=== PATIENT | female | born 1940 | race Caucasian/White ===

== ENCOUNTER 2023-09-05 15:47 | Emergency (ER) | payer MEDICARE, BC ==
[~2023-09-05] VITALS: Ht 165.1 cm; Wt 65.0 kg
[2023-09-05] MEDS: HYDROcodone/acetaminophen 5mg/325mg tablet PO ONE (17:18)
[2023-09-05] MEDS: ondansetron/PF 4mg/2ml inj IV ONE (18:08)
[2023-09-05 18:09] LABS: BILIRUBIN,URINE NEGATIVE (Neg); CLARITY,URINE CLEAR (Clear); GLUCOSE, URINE NEGATIVE (Neg); KETONES,URINE NEGATIVE (Neg); LEUKOCYTE ESTERASE ,URINE SMALL (Neg); NITRITES, URINE POSITIVE (Neg); OCCULT BLOOD,URINE MODERATE (Neg); PROTEIN,URINE 30 mg/dl (Neg); UROBILINOGEN,URINE 0.2 E.U/dL (0.2-1.0)
[2023-09-05 18:17] LABS: COLOR,URINE DARK YELLOW (Yellow); UA COLLECTION TYPE NON-SPECIFIED
[2023-09-05 18:18] LABS: BACTERIA,URINE 4+ /HPF (Neg); RBC,URINE 20-50 /HPF (0-2); WBC,URINE TNTC /HPF (0-4)
[2023-09-05 18:19] LABS: MUCUS STRANDS FEW /LPF (Neg); RENAL CELLS, URINE FEW /HPF; SQUAMOUS EPITHELIAL CELL,UR FEW /LPF (FEW); WBC CLUMPS,URINE MODERATE /HPF (NEGATIVE)
[2023-09-05] MEDS ORDERED: SULF1TAB45 PO (18:55)
[2023-09-05] MEDS: sulfamethoxazole/trimethoprim DS (800/160mg) tablet PO ONE (19:00)
[2023-09-05 20:33] VITALS: BP 112/62; PULSE 88; RESP 18; TEMP 98.3; O2SAT 98
[2023-09-07] MEDS ORDERED: APIX5TAB3 PO (16:43)
== END 2023-09-05 20:35 | disposition home or self-care (01) ==
LOC: ER 15:47
DX: S09.90XA Unspecified injury of head, initial encounter (principal); M25.551 Pain in right hip; N39.0 Urinary tract infection, site not specified; E78.00 Pure hypercholesterolemia, unspecified; I10 Essential (primary) hypertension; Z86.711 Personal history of pulmonary embolism; Z60.2 Problems related to living alone; W18.30XA Fall on same level, unspecified, initial encounter; Y93.89 Activity, other specified; Y92.002 Bathroom of unspecified non-institutional (private) residence as the place of occurrence of the external cause; Y99.8 Other external cause status
CPT/HCPCS: 70450; 72125; 72170; 81001; 87077; 87088; 87186; 96374; 99285; J2405

== ENCOUNTER 2023-10-04 08:01 | Emergency (ER) | payer MEDICARE, BC ==
[~2023-10-04] VITALS: Ht 166.4 cm; Wt 63.2 kg
[~2023-10-04 08:01] MED LIST: APIX5TAB3 PO; SULF1TAB45 PO
[2023-10-04 08:07] VITALS: TEMP 98.5
[2023-10-04 08:48] LABS: BASOPHILS # (AUTO) 0.1 X10'3 (0-0.2); BASOPHILS % (AUTO) 1.3 % (0-1); EOSINOPHILS # (AUTO) 0.6 X10'3 (0-0.9); EOSINOPHILS % (AUTO) 9.9 % (0-6); HEMATOCRIT 36.2 % (35.0-45.0); HEMOGLOBIN 11.8 g/dl (12.0-16.0); LYMPHOCYTES # (AUTO) 1.9 X10'3 (1.1-4.8); LYMPHOCYTES % (AUTO) 30.8 % (21-51); MEAN CORPUSCULAR HEMOGLOBIN 29.2 PG (27.0-31.0); MEAN CORPUSCULAR HGB CONC 32.7 g/dL (33.0-36.5); MEAN CORPUSCULAR VOLUME 89.5 FL (78-98); MEAN PLATELET VOLUME 8.7 FL (7.4-10.4); MONOCYTES # (AUTO) 0.4 X10'3 (0-0.9); NEUTROPHILS # (AUTO) 3.2 X10'3 (1.8-7.7); PLATELET COUNT 271 X10'3 (140-440); RED BLOOD COUNT 4.05 X10'6 (4.20-5.60); RED CELL DISTRIBUTION WIDTH 14.9 % (11.5-14.5); WHITE BLOOD COUNT 6.1 X10'3 (4.5-11.0)
[2023-10-04 09:07] LABS: ALBUMIN 3.2 G/DL (3.4-5.0); ANION GAP 9 (8-16); BLOOD UREA NITROGEN 15 MG/DL (7-18); BUN/CREATININE RATIO 15.2 (10.0-20.0); CALCIUM 9.3 MG/DL (8.5-10.1); CHLORIDE 103 MMOL/L (99-107); CREATININE 0.99 MG/DL (0.40-0.90); GLUCOSE 111 MG/DL (70-104); MAGNESIUM 1.7 MG/DL (1.5-2.4); POTASSIUM 3.6 MMOL/L (3.5-5.1); SODIUM 137 MMOL/L (135-145); TOTAL CARBON DIOXIDE 25.1 MMOL/L (24-32); eCRCL 40 ML/MIN; eGFR 54 ML/MIN
[2023-10-04 09:08] LABS: C-REACTIVE PROTEIN < 0.05 MG/DL (0.0-0.5)
[2023-10-04] MEDS ORDERED: TRAM1TAB7 PO (11:12)
[2023-10-04 11:19] VITALS: BP 165/65; PULSE 92; RESP 19; O2SAT 96
[2023-10-04] MEDS: traMADol 50MG tablet PO ONE (11:24)
== END 2023-10-04 18:11 | disposition home or self-care (01) ==
LOC: ER 08:02
DX: M47.812 Spondylosis without myelopathy or radiculopathy, cervical region (principal); E78.00 Pure hypercholesterolemia, unspecified; I10 Essential (primary) hypertension; Z86.711 Personal history of pulmonary embolism; G89.29 Other chronic pain; M54.2 Cervicalgia; Z60.2 Problems related to living alone
CPT/HCPCS: 36415; 71045; 72040; 80048; 83735; 84484; 85025; 86140; 93005; 99285

== ENCOUNTER 2023-10-24 18:19 | Emergency (ER) | payer MEDICARE, BC ==
[~2023-10-24] VITALS: Ht 165.1 cm; Wt 63.5 kg
[~2023-10-24 18:19] MED LIST changes: -SULF1TAB45 PO
[2023-10-24 19:48] LABS: BASOPHILS # (AUTO) 0.2 X10'3 (0-0.2); BASOPHILS % (AUTO) 1.5 % (0-1); EOSINOPHILS # (AUTO) 0.5 X10'3 (0-0.9); EOSINOPHILS % (AUTO) 5.1 % (0-6); HEMATOCRIT 36.7 % (35.0-45.0); HEMOGLOBIN 12.2 g/dl (12.0-16.0); LYMPHOCYTES # (AUTO) 2.2 X10'3 (1.1-4.8); LYMPHOCYTES % (AUTO) 21.1 % (21-51); MEAN CORPUSCULAR HEMOGLOBIN 29.7 PG (27.0-31.0); MEAN CORPUSCULAR HGB CONC 33.4 g/dL (33.0-36.5); MEAN PLATELET VOLUME 7.8 FL (7.4-10.4); MONOCYTES # (AUTO) 0.6 X10'3 (0-0.9); MONOCYTES % (AUTO) 6.1 % (2-12); NEUTROPHILS # (AUTO) 6.8 X10'3 (1.8-7.7); NEUTROPHILS % (AUTO) 66.2 % (42-75); PLATELET COUNT 263 X10'3 (140-440); RED BLOOD COUNT 4.12 X10'6 (4.20-5.60); WHITE BLOOD COUNT 10.2 X10'3 (4.5-11.0)
[2023-10-24 19:50] LABS: BILIRUBIN,URINE NEGATIVE (Neg); CLARITY,URINE CLOUDY (Clear); COLOR,URINE YELLOW (Yellow); GLUCOSE, URINE NEGATIVE (Neg); KETONES,URINE NEGATIVE (Neg); LEUKOCYTE ESTERASE ,URINE LARGE (Neg); NITRITES, URINE NEGATIVE (Neg); OCCULT BLOOD,URINE SMALL (Neg); PROTEIN,URINE NEGATIVE (Neg); UROBILINOGEN,URINE 0.2 E.U/dL (0.2-1.0)
[2023-10-24 20:02] LABS: ALANINE AMINOTRANSFERASE 27 U/L (12-78); ALBUMIN 3.6 G/DL (3.4-5.0); ALBUMIN/GLOBULIN RATIO 0.9 (1.1-1.5); ALKALINE PHOSPHATASE 109 IU/L (46-116); ANION GAP 6 (8-16); ASPARTATE AMINO TRANSFERASE 30 U/L (10-37); BILIRUBIN,TOTAL 0.6 MG/DL (0.1-1.0); BLOOD UREA NITROGEN 15 MG/DL (7-18); BUN/CREATININE RATIO 11.7 (10.0-20.0); CALCIUM 9.2 MG/DL (8.5-10.1); CHLORIDE 93 MMOL/L (99-107); CREATININE 1.28 MG/DL (0.40-0.90); GLUCOSE 125 MG/DL (70-104); LIPASE 71 U/L (16-77); POTASSIUM 4.2 MMOL/L (3.5-5.1); SODIUM 128 MMOL/L (135-145); TOTAL CARBON DIOXIDE 28.9 MMOL/L (24-32); TOTAL PROTEIN 7.4 G/DL (6.4-8.2); eCRCL 30 ML/MIN; eGFR 40 ML/MIN
[2023-10-24 20:06] LABS: UA COLLECTION TYPE CLN CATCH MIDSTREAM
[2023-10-24 20:07] LABS: BACTERIA,URINE 2+ /HPF (Neg); MUCUS STRANDS FEW /LPF (Neg); SQUAMOUS EPITHELIAL CELL,UR MODERATE /LPF (FEW); WBC,URINE TNTC /HPF (0-4)
[2023-10-24 20:08] LABS: WBC CLUMPS,URINE MODERATE /HPF (NEGATIVE)
[2023-10-25] MEDS ORDERED: NITR100C6 PO (00:23)
[2023-10-25] MEDS: CefTRIAXone 1000mg IM Kit (w/lidocaine diluent) IM ONE (00:42)
[2023-10-25 00:47] VITALS: BP 136/90; PULSE 89; RESP 16; TEMP 98.5; O2SAT 98
== END 2023-10-25 00:50 | disposition home or self-care (01) ==
LOC: ER 18:20
DX: K59.00 Constipation, unspecified (principal); N39.0 Urinary tract infection, site not specified; I48.91 Unspecified atrial fibrillation; E78.00 Pure hypercholesterolemia, unspecified; I10 Essential (primary) hypertension; Z86.711 Personal history of pulmonary embolism; Z60.2 Problems related to living alone; Z98.890 Other specified postprocedural states; Z79.899 Other long term (current) drug therapy
CPT/HCPCS: 36415; 71250; 74176; 80053; 81001; 83690; 85025; 87077; 87088; 87186; 96372; 99285; J0696

== ENCOUNTER 2023-12-25 09:39 | Day surgery (SDC) | payer MEDICARE, BC ==
[~2023-12-25] VITALS: Ht 165.1 cm; Wt 63.6 kg
[~2023-12-25 09:39] MED LIST changes: +AMLO2.5T4 PO; -APIX5TAB3 PO; +PANT-47 PO
[2023-12-25 10:26] VITALS: BP 160/83; PULSE 88; RESP 18; TEMP 97.8
[2023-12-25] MEDS ORDERED: fentaNYL/PF 50MCG/1 ML 2ML syringe ONE (11:08)
[2023-12-25] MEDS ORDERED: midazolam 1 mg/ML 2ml injection ONE (11:08)
[2023-12-25] MEDS ORDERED: simethicone 40mg/0.6ml oral drops 30ml ONE (11:09)
[2023-12-25 11:27] VITALS: BP 101/40; PULSE 79; RESP 9; O2SAT 99
[2023-12-25 11:40] VITALS: BP 106/42; PULSE 71; RESP 10; O2SAT 92
[2023-12-25 11:50] VITALS: BP 123/59; PULSE 71; RESP 15; O2SAT 94
[2023-12-25 12:00] VITALS: BP 110/50; PULSE 75; RESP 14; O2SAT 95
== END 2023-12-25 12:07 | disposition home or self-care (01) ==
LOC: GI LAB 09:39
PROVIDERS: ATTEND Internal Medicine Gastroenterology
DX: D50.0 Iron deficiency anemia secondary to blood loss (chronic) (principal); K29.50 Unspecified chronic gastritis without bleeding; K31.89 Other diseases of stomach and duodenum; I10 Essential (primary) hypertension; K21.9 Gastro-esophageal reflux disease without esophagitis; Z86.711 Personal history of pulmonary embolism
CPT/HCPCS: 43239; A4620; J2250; J3010; J7030; Z7512

== ENCOUNTER 2023-12-27 18:01 | Emergency (ER) | payer MEDICARE, BC ==
[~2023-12-27] VITALS: Ht 165.1 cm; Wt 63.9 kg
[2023-12-27 18:27] LABS: BILIRUBIN,URINE NEGATIVE (Neg); CLARITY,URINE CLOUDY (Clear); COLOR,URINE YELLOW (Yellow); GLUCOSE, URINE NEGATIVE (Neg); KETONES,URINE TRACE mg/dl (Neg); LEUKOCYTE ESTERASE ,URINE MODERATE (Neg); NITRITES, URINE NEGATIVE (Neg); OCCULT BLOOD,URINE SMALL (Neg); PROTEIN,URINE TRACE mg/dl (Neg)
[2023-12-27 18:36] LABS: UA COLLECTION TYPE CLN CATCH MIDSTREAM
[2023-12-27 18:54] LABS: SQUAMOUS EPITHELIAL CELL,UR FEW /LPF (FEW)
[2023-12-27 18:55] LABS: RBC,URINE 0-2 /HPF (0-2); WBC,URINE TNTC /HPF (0-4)
[2023-12-27 18:56] LABS: BACTERIA,URINE FEW /HPF (Neg)
[2023-12-27] MEDS ORDERED: AMOX-117 PO (18:59)
[2023-12-27] MEDS ORDERED: LACT1CAP65 PO (18:59)
[2023-12-27] MEDS: amox tr/potassium clavulanate 875/125mg TAB PO ONE (19:03)
[2023-12-27 19:16] VITALS: BP 124/69; PULSE 94; RESP 14; TEMP 98.5; O2SAT 98
== END 2023-12-27 19:18 | disposition home or self-care (01) ==
LOC: ER 18:01
DX: N39.0 Urinary tract infection, site not specified (principal); I48.91 Unspecified atrial fibrillation; E78.00 Pure hypercholesterolemia, unspecified; I10 Essential (primary) hypertension; Z86.73 Personal history of transient ischemic attack (TIA), and cerebral infarction without residual deficits; Z60.2 Problems related to living alone; Z79.899 Other long term (current) drug therapy; Z79.2 Long term (current) use of antibiotics; Z98.890 Other specified postprocedural states
CPT/HCPCS: 81001; 87077; 87088; 87186; 99283

== ENCOUNTER 2024-02-15 19:27 | Inpatient (IN) | payer MEDICARE, BC ==
[~2024-02-15] VITALS: Ht 165.1 cm; Wt 62.0 kg
[~2024-02-15 19:27] MED LIST changes: +LACT1CAP65 PO
[2024-02-15] MEDS: HYDROmorphone 1 mg/ml syringe IV ONE (19:57)
[2024-02-15 20:02] LABS: BASOPHILS # (AUTO) 0.1 X10'3 (0-0.2); BASOPHILS % (AUTO) 0.9 % (0-1); EOSINOPHILS # (AUTO) 0.3 X10'3 (0-0.9); HEMATOCRIT 35.3 % (35.0-45.0); HEMOGLOBIN 11.5 g/dl (12.0-16.0); LYMPHOCYTES # (AUTO) 1.6 X10'3 (1.1-4.8); LYMPHOCYTES % (AUTO) 22.6 % (21-51); MEAN CORPUSCULAR HEMOGLOBIN 28.9 PG (27.0-31.0); MEAN CORPUSCULAR HGB CONC 32.5 g/dL (33.0-36.5); MEAN PLATELET VOLUME 8.9 FL (7.4-10.4); MONOCYTES # (AUTO) 0.5 X10'3 (0-0.9); MONOCYTES % (AUTO) 6.9 % (2-12); NEUTROPHILS # (AUTO) 4.5 X10'3 (1.8-7.7); NEUTROPHILS % (AUTO) 64.6 % (42-75); PLATELET COUNT 159 X10'3 (140-440); RED BLOOD COUNT 3.97 X10'6 (4.20-5.60); RED CELL DISTRIBUTION WIDTH 14.3 % (11.5-14.5)
[2024-02-15 20:07] LABS: ALANINE AMINOTRANSFERASE 23 U/L (12-78); ALBUMIN 3.3 G/DL (3.4-5.0); ALKALINE PHOSPHATASE 98 IU/L (46-116); ANION GAP 4 (8-16); ASPARTATE AMINO TRANSFERASE 24 U/L (10-37); BILIRUBIN,TOTAL 0.5 MG/DL (0.1-1.0); BLOOD UREA NITROGEN 23 MG/DL (7-18); BUN/CREATININE RATIO 15.8 (10.0-20.0); CALCIUM 8.3 MG/DL (8.5-10.1); CHLORIDE 105 MMOL/L (99-107); CREATININE 1.46 MG/DL (0.40-0.90); GLUCOSE 112 MG/DL (70-104); POTASSIUM 3.8 MMOL/L (3.5-5.1); PRO BRAIN NATRIURETIC PEPTIDE 359 PG/ML (0-450); SODIUM 138 MMOL/L (135-145); TOTAL CARBON DIOXIDE 28.6 MMOL/L (24-32); TOTAL PROTEIN 6.5 G/DL (6.4-8.2); eCRCL 26 ML/MIN; eGFR 34 ML/MIN
[2024-02-15] MEDS ORDERED: PANT40TA54 PO (20:41)
[2024-02-15] MEDS ORDERED: MELA1TAB28 PO (20:41)
[2024-02-15] MEDS ORDERED: AMIT75TA7 PO (20:41)
[2024-02-15] MEDS ORDERED: magnesium hydroxide 30ml (MOM) UD suspension PO PRN (23:05)
[2024-02-15] MEDS ORDERED: HYDROmorphone inj. 0.5 MG/0.5 ML DISP.SYRIN IV PRN (23:05)
[2024-02-15] MEDS ORDERED: magnesium sulf-water 2g/50mL 50 ML IV PRN (23:05)
[2024-02-15] MEDS ORDERED: potassium Cl 40MEQ/1/2NS 520ml 520 ML IV PRN (23:05)
[2024-02-15] MEDS ORDERED: mag hydrox/Alum hydrox/simeth 30ml oral suspension PO PRN (23:05)
[2024-02-15] MEDS ORDERED: magnesium sulf-water 4G/100mL 100 ML IV PRN (23:05)
[2024-02-15] MEDS ORDERED: potassium Cl 20 mEq SR tablet PO PRN ×2 (23:05)
[2024-02-15] MEDS ORDERED: acetaminophen 325mg tablet PO PRN (23:05)
[2024-02-15] MEDS ORDERED: morphine 2 MG/ML inj. syringe IV PRN (23:05)
[2024-02-15] MEDS ORDERED: magnesium Cl slow-release 64mg tablet PO PRN (23:05)
[2024-02-15 23:37] LABS: HEMOGLOBIN A1C 5.9 % (4.5-6.2)
[2024-02-16] MEDS: HYDROmorphone/PF 0.2 MG/ML SYRINGE IV PRN (00:03)
[2024-02-16] MEDS: normal saline 1000ml 1,000 ML IV SCH (00:26)
[2024-02-16 00:35] LABS: FERRITIN 212 NG/ML (8-252)
[2024-02-16] MEDS: HYDROmorphone/PF 0.2 MG/ML SYRINGE IV ONE (00:44)
[2024-02-16 00:45] LABS: % IRON SATURATION 14 % (11-46); IRON 40 UG/DL (49-151); TOTAL IRON BINDING CAPACITY 280 UG/DL (259-388)
[2024-02-16] MEDS: LIDOcaine 5% patch TP SCH (02:15)
[2024-02-16] MEDS: enoxaparin 40mg/0.4ml syringe SUBCUT ONE (02:39)
[2024-02-16] MEDS: ondansetron/PF 4mg/2ml inj IV PRN (02:52)
[2024-02-16] MEDS: morphine 2 MG/ML inj. syringe IV PRN (02:53)
[2024-02-16 02:59] LABS: BASOPHILS % (AUTO) 0.3 % (0-1); EOSINOPHILS # (AUTO) 0.2 X10'3 (0-0.9); EOSINOPHILS % (AUTO) 1.5 % (0-6); HEMATOCRIT 36.4 % (35.0-45.0); HEMOGLOBIN 11.8 g/dl (12.0-16.0); LYMPHOCYTES # (AUTO) 1.3 X10'3 (1.1-4.8); LYMPHOCYTES % (AUTO) 12.4 % (21-51); MEAN CORPUSCULAR HEMOGLOBIN 29.1 PG (27.0-31.0); MEAN CORPUSCULAR HGB CONC 32.4 g/dL (33.0-36.5); MEAN CORPUSCULAR VOLUME 89.7 FL (78-98); MEAN PLATELET VOLUME 8.8 FL (7.4-10.4); MONOCYTES # (AUTO) 0.6 X10'3 (0-0.9); NEUTROPHILS # (AUTO) 8.5 X10'3 (1.8-7.7); NEUTROPHILS % (AUTO) 79.8 % (42-75); PLATELET COUNT 157 X10'3 (140-440); RED BLOOD COUNT 4.06 X10'6 (4.20-5.60); RED CELL DISTRIBUTION WIDTH 14.4 % (11.5-14.5); WHITE BLOOD COUNT 10.6 X10'3 (4.5-11.0)
[2024-02-16 03:11] LABS: ALANINE AMINOTRANSFERASE 32 U/L (12-78); ALBUMIN 3.3 G/DL (3.4-5.0); ALKALINE PHOSPHATASE 104 IU/L (46-116); ANION GAP 5 (8-16); ASPARTATE AMINO TRANSFERASE 26 U/L (10-37); BILIRUBIN,TOTAL 0.9 MG/DL (0.1-1.0); BLOOD UREA NITROGEN 19 MG/DL (7-18); BUN/CREATININE RATIO 15.8 (10.0-20.0); CALCIUM 8.5 MG/DL (8.5-10.1); CHLORIDE 106 MMOL/L (99-107); GLUCOSE 115 MG/DL (70-104); MAGNESIUM 1.7 MG/DL (1.5-2.4); POTASSIUM 3.6 MMOL/L (3.5-5.1); SODIUM 140 MMOL/L (135-145); TOTAL CARBON DIOXIDE 28.8 MMOL/L (24-32); TOTAL PROTEIN 6.6 G/DL (6.4-8.2); eCRCL 32 ML/MIN; eGFR 43 ML/MIN
[2024-02-16 03:30] LABS: BILIRUBIN,URINE NEGATIVE (Neg); CLARITY,URINE CLEAR (Clear); COLOR,URINE YELLOW (Yellow); GLUCOSE, URINE NEGATIVE (Neg); KETONES,URINE NEGATIVE (Neg); LEUKOCYTE ESTERASE ,URINE NEGATIVE (Neg); NITRITES, URINE NEGATIVE (Neg); OCCULT BLOOD,URINE NEGATIVE (Neg); PROTEIN,URINE NEGATIVE (Neg); UROBILINOGEN,URINE 0.2 E.U/dL (0.2-1.0)
[2024-02-16 03:35] LABS: UA COLLECTION TYPE CLN CATCH MIDSTREAM
[2024-02-16] MEDS: K and/or MAG REPLACEMENT MC SCH (06:47)
[2024-02-16] MEDS: docusate sod 100mg capsule PO SCH (06:48)
[2024-02-16 08:00] VITALS: RESP 20; O2SAT 94
[2024-02-16] MEDS: lactose-reduced food (Ensure Enlive) - 237ml bottle PO SCH (08:00)
[2024-02-16] MEDS ORDERED: pantoprazole 40mg Tablet.DR PO SCH (08:00)
[2024-02-16 08:57] VITALS: BP 160/70; PULSE 98; RESP 16; TEMP 98; O2SAT 99
[2024-02-16] MEDS: gabapentin 100mg capsule PO SCH (09:11)
[2024-02-16] MEDS: pantoprazole 40mg Tablet.DR PO SCH (09:11)
[2024-02-16] MEDS: amLODIPine 2.5mg tablet PO SCH (09:12)
[2024-02-16 10:00] VITALS: BP 125/66; PULSE 90; RESP 20; TEMP 98; O2SAT 94
[2024-02-16] MEDS: HYDROcodone/acetaminophen 10/325mg tab PO PRN (13:56)
[2024-02-16 18:00] VITALS: BP 151/82; PULSE 90; RESP 20; TEMP 97.8; O2SAT 97
[2024-02-16] MEDS: amitriptyline 25mg tablet PO SCH (20:38)
[2024-02-16] MEDS: pyridoxine 50mg tablet PO SCH (20:38)
[2024-02-16 20:40] VITALS: RESP 20
[2024-02-16] MEDS: Melatonin 3mg tablet PO SCH (21:47)
[2024-02-16 22:00] VITALS: BP 157/69; PULSE 93; RESP 16; TEMP 99.7; O2SAT 94
[2024-02-17 06:00] VITALS: BP 134/60; PULSE 94; RESP 14; TEMP 98.8; O2SAT 92
[2024-02-17 06:04] LABS: BASOPHILS % (AUTO) 0.5 % (0-1); EOSINOPHILS # (AUTO) 0.5 X10'3 (0-0.9); EOSINOPHILS % (AUTO) 7.1 % (0-6); HEMOGLOBIN 10.5 g/dl (12.0-16.0); LYMPHOCYTES # (AUTO) 1.2 X10'3 (1.1-4.8); LYMPHOCYTES % (AUTO) 17.8 % (21-51); MEAN CORPUSCULAR HEMOGLOBIN 29.4 PG (27.0-31.0); MEAN CORPUSCULAR HGB CONC 32.7 g/dL (33.0-36.5); MEAN CORPUSCULAR VOLUME 89.9 FL (78-98); MONOCYTES # (AUTO) 0.4 X10'3 (0-0.9); MONOCYTES % (AUTO) 6.1 % (2-12); NEUTROPHILS # (AUTO) 4.8 X10'3 (1.8-7.7); NEUTROPHILS % (AUTO) 68.5 % (42-75); PLATELET COUNT 126 X10'3 (140-440); RED BLOOD COUNT 3.56 X10'6 (4.20-5.60); RED CELL DISTRIBUTION WIDTH 14.1 % (11.5-14.5)
[2024-02-17 06:10] LABS: INR 1.1 INR; PROTHROMBIN TIME 11.3 SECONDS (9.0-12.0)
[2024-02-17 06:24] LABS: ALANINE AMINOTRANSFERASE 26 U/L (12-78); ALBUMIN 2.6 G/DL (3.4-5.0); ALBUMIN/GLOBULIN RATIO 0.8 (1.1-1.5); ALKALINE PHOSPHATASE 89 IU/L (46-116); ANION GAP 4 (8-16); ASPARTATE AMINO TRANSFERASE 23 U/L (10-37); BILIRUBIN,TOTAL 1.1 MG/DL (0.1-1.0); BLOOD UREA NITROGEN 14 MG/DL (7-18); BUN/CREATININE RATIO 12.6 (10.0-20.0); CALCIUM 8.1 MG/DL (8.5-10.1); CHLORIDE 106 MMOL/L (99-107); CREATININE 1.11 MG/DL (0.40-0.90); GLUCOSE 123 MG/DL (70-104); MAGNESIUM 1.7 MG/DL (1.5-2.4); POTASSIUM 3.8 MMOL/L (3.5-5.1); SODIUM 138 MMOL/L (135-145); TOTAL CARBON DIOXIDE 27.9 MMOL/L (24-32); TOTAL PROTEIN 5.7 G/DL (6.4-8.2); eCRCL 35 ML/MIN; eGFR 47 ML/MIN
[2024-02-17 09:42] VITALS: RESP 16; O2SAT 89
[2024-02-17 10:00] VITALS: BP 145/61; PULSE 96; RESP 16; TEMP 97.5; O2SAT 97
[2024-02-17] MEDS ORDERED: HYDROcodone/acetaminophen 5mg/325mg tablet PO PRN (16:25)
[2024-02-17] MEDS ORDERED: HYDROcodone/acetaminophen 10/325mg tab PO PRN (16:25)
[2024-02-17 18:00] VITALS: BP 160/60; PULSE 75; RESP 17; TEMP 99.1; O2SAT 96
[2024-02-17 20:20] VITALS: RESP 16
[2024-02-17] MEDS: heparin, porcine 5000 units/ml vial SQ SCH (21:35)
[2024-02-17 22:00] VITALS: BP 154/69; PULSE 84; RESP 16; TEMP 98.9; O2SAT 99
[2024-02-18] VITALS (7 sets, daily range): BP systolic 111–147; BP diastolic 59–72; PULSE 81–90; RESP 16–17; TEMP 97.2–98.1; O2SAT 90–97
[2024-02-18 06:20] LABS: ALANINE AMINOTRANSFERASE 26 U/L (12-78); ALBUMIN 2.5 G/DL (3.4-5.0); ALBUMIN/GLOBULIN RATIO 0.8 (1.1-1.5); ALKALINE PHOSPHATASE 93 IU/L (46-116); ANION GAP 5 (8-16); ASPARTATE AMINO TRANSFERASE 26 U/L (10-37); BILIRUBIN,TOTAL 1.2 MG/DL (0.1-1.0); BLOOD UREA NITROGEN 11 MG/DL (7-18); BUN/CREATININE RATIO 13.1 (10.0-20.0); CALCIUM 8.2 MG/DL (8.5-10.1); CHLORIDE 105 MMOL/L (99-107); CREATININE 0.84 MG/DL (0.40-0.90); GLUCOSE 108 MG/DL (70-104); MAGNESIUM 1.7 MG/DL (1.5-2.4); POTASSIUM 3.9 MMOL/L (3.5-5.1); SODIUM 137 MMOL/L (135-145); TOTAL CARBON DIOXIDE 27.4 MMOL/L (24-32); TOTAL PROTEIN 5.6 G/DL (6.4-8.2); eCRCL 46 ML/MIN; eGFR 65 ML/MIN
[2024-02-18 06:22] LABS: BASOPHILS # (AUTO) 0.1 X10'3 (0-0.2); BASOPHILS % (AUTO) 0.8 % (0-1); EOSINOPHILS # (AUTO) 0.5 X10'3 (0-0.9); EOSINOPHILS % (AUTO) 7.3 % (0-6); HEMATOCRIT 30.7 % (35.0-45.0); HEMOGLOBIN 10.1 g/dl (12.0-16.0); LYMPHOCYTES # (AUTO) 1.3 X10'3 (1.1-4.8); LYMPHOCYTES % (AUTO) 18.5 % (21-51); MEAN CORPUSCULAR HEMOGLOBIN 29.3 PG (27.0-31.0); MEAN CORPUSCULAR HGB CONC 32.9 g/dL (33.0-36.5); MEAN CORPUSCULAR VOLUME 88.9 FL (78-98); MEAN PLATELET VOLUME 9.1 FL (7.4-10.4); MONOCYTES # (AUTO) 0.5 X10'3 (0-0.9); MONOCYTES % (AUTO) 6.7 % (2-12); NEUTROPHILS # (AUTO) 4.7 X10'3 (1.8-7.7); NEUTROPHILS % (AUTO) 66.7 % (42-75); PLATELET COUNT 127 X10'3 (140-440); RED BLOOD COUNT 3.45 X10'6 (4.20-5.60); RED CELL DISTRIBUTION WIDTH 13.6 % (11.5-14.5)
[2024-02-18] MEDS: acyclovir 200 MG capsule PO SCH (11:37)
[2024-02-19] VITALS (19 sets, daily range): BP systolic 122–172; BP diastolic 68–98; PULSE 59–113; RESP 14–18; TEMP 97.7–99.6; O2SAT 90–100
[2024-02-19 04:49] LABS: BASOPHILS # (AUTO) 0.1 X10'3 (0-0.2); BASOPHILS % (AUTO) 0.9 % (0-1); EOSINOPHILS # (AUTO) 0.4 X10'3 (0-0.9); EOSINOPHILS % (AUTO) 7.5 % (0-6); HEMATOCRIT 30.5 % (35.0-45.0); LYMPHOCYTES # (AUTO) 1.2 X10'3 (1.1-4.8); LYMPHOCYTES % (AUTO) 20.5 % (21-51); MEAN CORPUSCULAR HEMOGLOBIN 29.2 PG (27.0-31.0); MEAN CORPUSCULAR HGB CONC 32.7 g/dL (33.0-36.5); MEAN CORPUSCULAR VOLUME 89.3 FL (78-98); MEAN PLATELET VOLUME 8.6 FL (7.4-10.4); MONOCYTES # (AUTO) 0.5 X10'3 (0-0.9); MONOCYTES % (AUTO) 8.6 % (2-12); NEUTROPHILS # (AUTO) 3.7 X10'3 (1.8-7.7); NEUTROPHILS % (AUTO) 62.5 % (42-75); PLATELET COUNT 148 X10'3 (140-440); RED BLOOD COUNT 3.41 X10'6 (4.20-5.60); WHITE BLOOD COUNT 5.9 X10'3 (4.5-11.0)
[2024-02-19 04:56] LABS: ALANINE AMINOTRANSFERASE 30 U/L (12-78); ALBUMIN 2.4 G/DL (3.4-5.0); ALBUMIN/GLOBULIN RATIO 0.7 (1.1-1.5); ALKALINE PHOSPHATASE 123 IU/L (46-116); ANION GAP 5 (8-16); ASPARTATE AMINO TRANSFERASE 33 U/L (10-37); BILIRUBIN,TOTAL 0.7 MG/DL (0.1-1.0); BLOOD UREA NITROGEN 15 MG/DL (7-18); BUN/CREATININE RATIO 16.3 (10.0-20.0); CALCIUM 7.8 MG/DL (8.5-10.1); CHLORIDE 105 MMOL/L (99-107); CREATININE 0.92 MG/DL (0.40-0.90); GLUCOSE 125 MG/DL (70-104); MAGNESIUM 1.6 MG/DL (1.5-2.4); POTASSIUM 3.8 MMOL/L (3.5-5.1); SODIUM 138 MMOL/L (135-145); TOTAL CARBON DIOXIDE 27.8 MMOL/L (24-32); TOTAL PROTEIN 5.7 G/DL (6.4-8.2); eCRCL 42 ML/MIN; eGFR 58 ML/MIN
[2024-02-19] MEDS: ceFAZolin 1000mg inj ONE ×3 (13:00→14:36)
[2024-02-19] MEDS: tranexamic acid 100mg/ml inj. ONE (13:01)
[2024-02-19] MEDS: hydrALAZINE 20mg/ml inj. IV PRN (13:21)
[2024-02-19] MEDS: meperidine/PF 25mg/ml syringe ONE (14:51)
[2024-02-19] MEDS: meperidine/PF 25mg/ml syringe IV STA (14:52)
[2024-02-19] MEDS ORDERED: fentaNYL/PF 50MCG/1 ML 2ML syringe ONE (14:58)
[2024-02-19] MEDS ORDERED: MIDAZolam 1 MG/ML 5ML VIAL ONE (14:59)
[2024-02-19] MEDS ORDERED: BUPIVAcaine/dex-water/PF 7.5 mg/ml 2ml ampul ONE (15:05)
[2024-02-19] MEDS ORDERED: ceFAZolin 1000mg inj ONE ×2 (15:45)
[2024-02-19] MEDS: Thrombin (Bovine) 5,000 unit vial TP ONE (16:07)
[2024-02-19] MEDS: vancomycin 1,000mg inj ONE (16:07)
[2024-02-20 04:59] LABS: BASOPHILS % (AUTO) 0.4 % (0-1); EOSINOPHILS # (AUTO) 0.1 X10'3 (0-0.9); EOSINOPHILS % (AUTO) 0.9 % (0-6); HEMATOCRIT 30.2 % (35.0-45.0); HEMOGLOBIN 10.3 g/dl (12.0-16.0); LYMPHOCYTES # (AUTO) 0.7 X10'3 (1.1-4.8); LYMPHOCYTES % (AUTO) 10.4 % (21-51); MEAN CORPUSCULAR HEMOGLOBIN 30.3 PG (27.0-31.0); MEAN PLATELET VOLUME 8.7 FL (7.4-10.4); MONOCYTES # (AUTO) 0.6 X10'3 (0-0.9); MONOCYTES % (AUTO) 8.1 % (2-12); NEUTROPHILS # (AUTO) 5.6 X10'3 (1.8-7.7); NEUTROPHILS % (AUTO) 80.2 % (42-75); PLATELET COUNT 160 X10'3 (140-440); RED BLOOD COUNT 3.39 X10'6 (4.20-5.60); RED CELL DISTRIBUTION WIDTH 13.5 % (11.5-14.5)
[2024-02-20 05:12] LABS: ANION GAP 8 (8-16); BILIRUBIN,TOTAL 1.1 MG/DL (0.1-1.0); BLOOD UREA NITROGEN 12 MG/DL (7-18); BUN/CREATININE RATIO 13.5 (10.0-20.0); CALCIUM 7.8 MG/DL (8.5-10.1); CHLORIDE 102 MMOL/L (99-107); CREATININE 0.89 MG/DL (0.40-0.90); GLUCOSE 119 MG/DL (70-104); POTASSIUM 3.6 MMOL/L (3.5-5.1); SODIUM 136 MMOL/L (135-145); TOTAL CARBON DIOXIDE 25.8 MMOL/L (24-32); TOTAL PROTEIN 5.5 G/DL (6.4-8.2); eCRCL 43 ML/MIN; eGFR 61 ML/MIN
[2024-02-20 05:13] LABS: ALANINE AMINOTRANSFERASE 25 U/L (12-78); ALBUMIN 2.3 G/DL (3.4-5.0); ALBUMIN/GLOBULIN RATIO 0.7 (1.1-1.5); ALKALINE PHOSPHATASE 114 IU/L (46-116); ASPARTATE AMINO TRANSFERASE 31 U/L (10-37)
[2024-02-20 06:00] VITALS: BP 142/83; RESP 22; TEMP 99.8; O2SAT 95
[2024-02-20 09:36] VITALS: BP_SYST 142; PULSE 102
[2024-02-20] MEDS: gabapentin 100mg capsule PO SCH (09:36)
[2024-02-20] MEDS: apixaban 5mg tablet PO SCH (09:37)
[2024-02-20] MEDS ORDERED: ASPI81TA52 PO (10:16)
[2024-02-20] MEDS ORDERED: DOCU100C40 PO (10:17)
[2024-02-20] MEDS ORDERED: HYDR-3972 PO (10:24)
[2024-02-20] MEDS ORDERED: APIX5TAB3 PO (10:24)
[2024-02-20] MEDS ORDERED: SENN-294 PO (10:24)
[2024-02-20] MEDS ORDERED: ZOF4I IV (10:24)
[2024-02-20 15:32] VITALS: RESP 16
== END 2024-02-20 16:15 | DRG 521 ==
LOC: ER 19:28 → ED HOLD 20:52 → EDBEDREQ 02-16 02:51 → SUR 3N 02-16 08:28
PROVIDERS: ADMIT Internal Medicine Critical Care Medicine; ATTEND Nurse Practitioner Family
PROC: 0SRS0J9 Replacement of Left Hip Joint, Femoral Surface with Synthetic Substitute, Cemented, Open Approach (ICD-10-PCS; principal; 2024-02-19 15:05)
DX: S72.092A Other fracture of head and neck of left femur, initial encounter for closed fracture (principal); N17.0 Acute kidney failure with tubular necrosis; M87.851 Other osteonecrosis, right femur; N39.0 Urinary tract infection, site not specified; G47.00 Insomnia, unspecified; E86.0 Dehydration; W18.39XA Other fall on same level, initial encounter; E78.00 Pure hypercholesterolemia, unspecified; I10 Essential (primary) hypertension; Z79.899 Other long term (current) drug therapy; Z86.711 Personal history of pulmonary embolism; Z90.710 Acquired absence of both cervix and uterus; Z87.891 Personal history of nicotine dependence; Y93.89 Activity, other specified; Y92.89 Other specified places as the place of occurrence of the external cause; Y99.8 Other external cause status; M81.0 Age-related osteoporosis without current pathological fracture; Z79.01 Long term (current) use of anticoagulants
CPT/HCPCS: 36415; 70450; 71045; 72192; 73501; 73502; 80053; 81003; 82570; 82728; 82948; 83036; 83540; 83550; 83735; 83880; 83935; 84300; 84484; 85025; 85610; 86885; 86900; 86901; 87081; 93005; 96374; 99285; A4215; A4314; A4615; A4618; A6258; A6449; A7000; C1713; C1758; C1776; G0378; J0360; J0690; J1171; J1644; J1650; J2175; J2250; J2270; J2405; J3010; J3370; J3490; J7030

== ENCOUNTER 2024-06-23 09:20 | Inpatient (IN) | payer MEDICARE, BC ==
[2024-06-17 16:15] LABS: BASOPHILS # (AUTO) 0.1 X10'3 (0-0.2); EOSINOPHILS # (AUTO) 0.7 X10'3 (0-0.9); LYMPHOCYTES # (AUTO) 1.6 X10'3 (1.1-4.8); LYMPHOCYTES % (AUTO) 22.7 % (21-51); MEAN CORPUSCULAR HEMOGLOBIN 28.4 PG (27.0-31.0); MEAN CORPUSCULAR HGB CONC 32.6 g/dL (33.0-36.5); MEAN PLATELET VOLUME 8.5 FL (7.4-10.4); MONOCYTES # (AUTO) 0.6 X10'3 (0-0.9); MONOCYTES % (AUTO) 7.7 % (2-12); NEUTROPHILS # (AUTO) 4.3 X10'3 (1.8-7.7); NEUTROPHILS % (AUTO) 59.6 % (42-75); PRE OP HEMATOCRIT 36.3 % (35.0-45.0); PRE OP HEMOGLOBIN 11.9 g/dL (12.0-16.0); PRE OP PLATELET COUNT 232 X10'3 (140-440); PRE OP WHITE BLOOD COUNT 7.3 10'3 (4.8-10.8); RED BLOOD COUNT 4.18 X10'6 (4.20-5.60); RED CELL DISTRIBUTION WIDTH 16.8 % (11.5-14.5)
[2024-06-17 16:41] LABS: ALBUMIN 3.4 G/DL (3.4-5.0); ALBUMIN/GLOBULIN RATIO 0.9 (1.1-1.5); ALKALINE PHOSPHATASE 98 IU/L (46-116); BLOOD UREA NITROGEN 19 MG/DL (7-18); BUN/CREATININE RATIO 21.3 (10.0-20.0); CALCIUM 8.8 MG/DL (8.5-10.1); CHLORIDE 106 MMOL/L (99-107); CREATININE 0.89 MG/DL (0.40-0.90); PRE OP ALT 36 U/L (30-65); PRE OP ANION GAP 6 (8-16); PRE OP AST 27 U/L (10-37); PRE OP BILIRUB, TOTAL 0.5 MG/DL (0.0-1.0); PRE OP GLUCOSE 99 MG/DL (70-104); PRE OP POTASSIUM 4.1 MMOL/L (3.4-5.1); PRE OP SODIUM 144 MMOL/L (135-145); TOTAL CARBON DIOXIDE 32.4 MMOL/L (24-32); TOTAL PROTEIN 7.1 G/DL (6.4-8.2); eGFR 61 ML/MIN
[~2024-06-23] VITALS: Ht 165.1 cm; Wt 67.0 kg
[2024-06-23] VITALS (21 sets, daily range): BP systolic 96–138; BP diastolic 40–73; PULSE 81–128; RESP 12–20; TEMP 97.5–98.5; O2SAT 93–100
[~2024-06-23 09:20] MED LIST changes: +AMIT75TA7 PO; +AMLO2.5T2 PO; -AMLO2.5T4 PO; +AMOX-580 PO; +APIX5TAB3 PO; +GABA300C PO; -LACT1CAP65 PO; +iron PO; +tranexamic acid inj. 1,000 MG in normal saline 100ml IV soln 90 ML IV ONE; +vancomycin 1,000mg inj ONE
[2024-06-23] MEDS ORDERED: midazolam 1 mg/ML 2ml injection ONE (10:00)
[2024-06-23] MEDS ORDERED: fentaNYL/PF 50MCG/1 ML 2ML syringe ONE (10:01)
[2024-06-23] MEDS ORDERED: morphine /PF 1mg/ml 10ml inj. ONE (10:05)
[2024-06-23] MEDS ORDERED: MIDO10TA3 PO (10:12)
[2024-06-23] MEDS: ceFAZolin 2gm in dextrose, iso 50 ML IV ONE (10:13)
[2024-06-23] MEDS: famotidine 20mg tablet PO ONE (10:14)
[2024-06-23] MEDS: ringers solution, lacted 1,000 ML IV SCH ×2 (10:14→21:39)
[2024-06-23] MEDS: vancomycin/NS 1 GM ADD-VANTAGE 250 ML X 1 DOSE IV ONE (10:14)
[2024-06-23] MEDS ORDERED: ondansetron/PF 4mg/2ml inj IV PRN ×2 (10:25→16:25)
[2024-06-23] MEDS ORDERED: labetalol 20mg/4ml (5mg/ml) syringe IV PRN (10:25)
[2024-06-23] MEDS ORDERED: morphine 4 MG/ML inj SYRINge IV PRN (10:25)
[2024-06-23] MEDS ORDERED: enalaprilat 1.25mg/ml 2ml vial IV PRN (10:25)
[2024-06-23] MEDS ORDERED: meperidine/PF 25mg/ml syringe IV PRN ×3 (10:25)
[2024-06-23] MEDS ORDERED: morphine 2 MG/ML inj. syringe IV PRN (10:25)
[2024-06-23] MEDS ORDERED: proCHLORperazine 10 MG/2 ml inj IV PRN (10:25)
[2024-06-23] MEDS ORDERED: sevoflurane 250ml liquid IH ONE (11:08)
[2024-06-23] MEDS ORDERED: gelatin sponge, absorbable (Gelfoam 100) sponge TP ONE (15:05)
[2024-06-23] MEDS ORDERED: naloxone 0.4 mg/ml inj IV PRN (16:25)
[2024-06-23] MEDS ORDERED: magnesium hydroxide 30ml (MOM) UD suspension PO PRN (16:25)
[2024-06-23] MEDS ORDERED: diphenhydrAMINE 25mg capsule PO PRN (16:25)
[2024-06-23] MEDS ORDERED: HYDROmorphone/PF 0.2 MG/ML SYRINGE IV PRN ×2 (16:40)
[2024-06-23] MEDS: HYDROmorphone 1 mg/ml syringe IV PRN (19:02)
[2024-06-23] MEDS: pantoprazole 40mg Tablet.DR PO SCH (19:35)
[2024-06-23] MEDS: mag hydrox/Alum hydrox/simeth 30ml oral suspension PO PRN (20:02)
[2024-06-23] MEDS: ipratropium/albuterol 3ml nebule NEB PRN (20:16)
[2024-06-23] MEDS: sennosides 8.6mg tablet PO SCH (21:00)
[2024-06-23] MEDS: gabapentin 300mg capsule PO SCH (21:00)
[2024-06-23] MEDS: potassium Cl 20mEq in NS 1,000 ML IV SCH (21:16)
[2024-06-23] MEDS: vancomycin/NS 1 GM ADD-VANTAGE 250 ML IV SCH (21:16)
[2024-06-23] MEDS: tranexamic acid 1gm/0.7% sal. 100 ML IV ONE (21:39)
[2024-06-23] MEDS: acetaminophen 325mg tablet PO SCH (21:40)
[2024-06-23] MEDS: normal saline 500ml IV soln 500 ML IV ONE (22:00)
[2024-06-24] VITALS (10 sets, daily range): BP systolic 99–121; BP diastolic 43–62; PULSE 68–119; RESP 14–18; TEMP 97.3–98.4; O2SAT 90–97
[2024-06-24] MEDS: normal saline 500ml IV soln 500 ML IV ONE (00:44)
[2024-06-24 01:06] LABS: BASOPHILS % (AUTO) 0.3 % (0-1); EOSINOPHILS # (AUTO) 0.1 X10'3 (0-0.9); EOSINOPHILS % (AUTO) 0.9 % (0-6); HEMATOCRIT 27.6 % (35.0-45.0); LYMPHOCYTES # (AUTO) 0.7 X10'3 (1.1-4.8); LYMPHOCYTES % (AUTO) 7.7 % (21-51); MEAN CORPUSCULAR HEMOGLOBIN 28.8 PG (27.0-31.0); MEAN CORPUSCULAR HGB CONC 32.7 g/dL (33.0-36.5); MEAN CORPUSCULAR VOLUME 88.1 FL (78-98); MEAN PLATELET VOLUME 8.2 FL (7.4-10.4); MONOCYTES # (AUTO) 0.5 X10'3 (0-0.9); MONOCYTES % (AUTO) 5.8 % (2-12); NEUTROPHILS # (AUTO) 7.6 X10'3 (1.8-7.7); NEUTROPHILS % (AUTO) 85.3 % (42-75); PLATELET COUNT 159 X10'3 (140-440); RED BLOOD COUNT 3.13 X10'6 (4.20-5.60); RED CELL DISTRIBUTION WIDTH 16.4 % (11.5-14.5); WHITE BLOOD COUNT 8.9 X10'3 (4.5-11.0)
[2024-06-24 01:25] LABS: ALBUMIN 2.5 G/DL (3.4-5.0); ANION GAP 7 (8-16); BLOOD UREA NITROGEN 17 MG/DL (7-18); BUN/CREATININE RATIO 10.8 (10.0-20.0); CALCIUM 7.9 MG/DL (8.5-10.1); CHLORIDE 109 MMOL/L (99-107); CREATININE 1.57 MG/DL (0.40-0.90); GLUCOSE 152 MG/DL (70-104); POTASSIUM 4.4 MMOL/L (3.5-5.1); SODIUM 142 MMOL/L (135-145); eCRCL 24 ML/MIN; eGFR 31 ML/MIN
[2024-06-24] MEDS: ceFAZolin/D5W- 1GM premix 50 ML IV SCH (01:27)
[2024-06-24] MEDS: HYDROmorphone inj. 0.5 MG/0.5 ML DISP.SYRIN IV PRN (06:00)
[2024-06-24] MEDS: enoxaparin 40mg/0.4ml syringe SQ SCH (07:34)
[2024-06-24] MEDS: oxyCODONE IR 5mg (immed. release) tablet PO PRN (11:02)
[2024-06-24] MEDS: gabapentin 300mg capsule PO SCH (20:38)
[2024-06-25 06:00] VITALS: BP 157/65; PULSE 113; RESP 14; TEMP 97.7; O2SAT 94
[2024-06-25 07:00] VITALS: RESP 16; O2SAT 94
[2024-06-25] MEDS: enoxaparin 30mg/0.3ml syringe SQ SCH (07:43)
[2024-06-25 10:00] VITALS: BP 107/53; PULSE 101; RESP 16; TEMP 97.7; O2SAT 95
[2024-06-25 18:30] VITALS: BP 143/68; PULSE 96; RESP 18; TEMP 98.4; O2SAT 94
[2024-06-25] MEDS: ringers solution, lacted 1,000 ML IV ONE (20:46)
[2024-06-25 21:08] LABS: BILIRUBIN,URINE NEGATIVE (Neg); CLARITY,URINE CLEAR (Clear); COLOR,URINE YELLOW (Yellow); GLUCOSE, URINE NEGATIVE (Neg); KETONES,URINE NEGATIVE (Neg); LEUKOCYTE ESTERASE ,URINE NEGATIVE (Neg); NITRITES, URINE NEGATIVE (Neg); OCCULT BLOOD,URINE TRACE-INTACT (Neg); PROTEIN,URINE NEGATIVE (Neg); UROBILINOGEN,URINE 0.2 E.U/dL (0.2-1.0)
[2024-06-25 21:15] LABS: UA COLLECTION TYPE OTHER
[2024-06-25 21:16] LABS: BACTERIA,URINE NONE SEEN /HPF (Neg); RBC,URINE 0-2 /HPF (0-2); SQUAMOUS EPITHELIAL CELL,UR NONE SEEN /LPF (FEW); WBC,URINE NONE SEEN /HPF (0-4)
[2024-06-25 22:00] VITALS: BP 166/71; PULSE 100; RESP 16; TEMP 98; O2SAT 96
[2024-06-25] MEDS: oxyCODONE IR 5mg (immed. release) tablet PO PRN (22:47)
[2024-06-26] MEDS: acetaminophen 325mg tablet PO PRN (08:03)
[2024-06-26 10:00] VITALS: BP 157/76; PULSE 98; RESP 16; TEMP 97.3; O2SAT 97
== END 2024-06-26 16:15 | DRG 467 ==
LOC: PAS IN 09:20 → ORTHO 4S 17:20
PROVIDERS: ADMIT Orthopaedic Surgery; ATTEND Orthopaedic Surgery
PROC: 0SP90JZ Removal of Synthetic Substitute from Right Hip Joint, Open Approach (ICD-10-PCS; 2024-06-23)
PROC: 0SR9039 Replacement of Right Hip Joint with Ceramic Synthetic Substitute, Cemented, Open Approach (ICD-10-PCS; principal; 2024-06-23 11:08)
DX: T84.89XA Other specified complication of internal orthopedic prosthetic devices, implants and grafts, initial encounter (principal); N17.9 Acute kidney failure, unspecified; M16.11 Unilateral primary osteoarthritis, right hip; I12.9 Hypertensive chronic kidney disease with stage 1 through stage 4 chronic kidney disease, or unspecified chronic kidney disease; N18.9 Chronic kidney disease, unspecified; G89.4 Chronic pain syndrome; K21.9 Gastro-esophageal reflux disease without esophagitis; M24.7 Protrusio acetabuli; E86.1 Hypovolemia; E88.09 Other disorders of plasma-protein metabolism, not elsewhere classified; X58.XXXA Exposure to other specified factors, initial encounter; Y83.8 Other surgical procedures as the cause of abnormal reaction of the patient, or of later complication, without mention of misadventure at the time of the procedure; D64.9 Anemia, unspecified; F51.04 Psychophysiologic insomnia; Z86.711 Personal history of pulmonary embolism; Z79.899 Other long term (current) drug therapy; Z79.01 Long term (current) use of anticoagulants; Y92.89 Other specified places as the place of occurrence of the external cause
CPT/HCPCS: 36415; 71045; 72170; 80048; 80053; 81001; 82948; 85025; 86885; 86900; 86901; 87081; 92508; 92616; 93005; 94640; 94760; 97110; 97161; 97530; A4215; A4615; A4618; A6212; A6253; A6258; A6449; A7000; C1713; C1758; C1776; G0378; J0690; J1171; J1650; J2250; J2274; J2704; J3010; J3370; J3480; J3490; J7030; J7040; J7120; S0020